=== PATIENT | female | born 1960 | race American Indian/Alaskan Native ===

== ENCOUNTER 2019-01-22 13:50 | Emergency (ER) | payer OTHER ==
--- NOTE | 2019-01-22 15:50 | Emergency Department Report ---
Chief Complaint: Extremity Injury, Upper Stated Complaint: R ARM PAIN Time Seen by Provider: 01/22/19 15:44 - HPI History of Present Illness: This is a 58 y.o. Telugu speaking female patient that reports with right shoulder pain radiating to fingers for 3 days. Denies injury. - ROS Review of Systems: right shoulder pain - Exam Vital Signs: Vital Signs 01/22/19 15:36 Temperature 98.2 F Pulse Rate 75 Respiratory 18 Rate Blood Pressure 152/81 [Left] O2 Sat by Pulse 98 Oximetry MSE screening note: Focused history and physical exam performed. Due to findings the following was ordered: X-ray of right shoulder Fast track for further evaluation ED Disposition for MSE Condition: Stable
--- NOTE | 2019-01-22 16:27 | XRay Report ---
XRAY RIGHT SHOULDER THREE VIEWS: 01/22/19 13:50:00 CLINICAL: Acromioclavicular joint pain FINDINGS: Normal acromioclavicular joint and normal glenohumeral joint. No fracture or dislocation. No bone lesion. Large calcifications in the subdeltoid bursa adjacent to the greater tuberosity and at the distal aspect of the supraspinatus tendon. IMPRESSION: Calcific tendinopathy of the rotator cuff and subdeltoid calcific bursitis. Normal acromioclavicular joint.
[2019-01-22] MEDS ORDERED: TORADOL IM STA (22:30)
[2019-01-22] MEDS ORDERED: PERCOCET 5/325 PO STA (22:30)
--- NOTE | 2019-01-22 22:50 | Emergency Department Report ---
ED Upper Extremity Inj HPI - General Chief Complaint: Extremity Injury, Upper Stated Complaint: R ARM PAIN Time Seen by Provider: 01/22/19 15:44 Source: patient Mode of arrival: Ambulatory Limitations: Language Barrier - History of Present Illness MD Complaint: Injury to:: right, shoulder -: week(s) (often on for over a year, but progressively worsening the last couple weeks) Other Extremity Injury: Shoulder: Right Other Injuries: none Handedness: right Improves With: none Worsens With: none Associated Symptoms: denies: numbness, neck pain, nausea/vomiting, heard/felt popping sensat - Related Data Previous Rx's Medication Instructions Recorded Last Taken Type predniSONE [Deltasone] 20 mg PO QDAY #10 tab 01/22/19 Unknown Rx traMADol [Ultram] 50 mg PO Q6HR PRN #14 tablet 01/22/19 Unknown Rx Allergies Allergy/AdvReac Type Severity Reaction Status Date / Time No Known Allergies Allergy Verified 01/22/19 15:48 ED Review of Systems ROS: Stated complaint: R ARM PAIN Other details as noted in HPI Constitutional: denies: chills, fever Eyes: denies: eye pain, eye discharge, vision change ENT: denies: ear pain, throat pain Respiratory: denies: cough, shortness of breath, wheezing Cardiovascular: denies: chest pain, palpitations Endocrine: no symptoms reported Gastrointestinal: denies: abdominal pain, nausea, diarrhea Genitourinary: denies: urgency, dysuria, discharge Musculoskeletal: arthralgia. denies: back pain, joint swelling Skin: denies: rash, lesions Neurological: denies: headache, weakness, paresthesias Psychiatric: denies: anxiety, depression Hematological/Lymphatic: denies: easy bleeding, easy bruising ED Past Medical Hx - Social History Smoking Status: Never Smoker Substance Use Type: None - Medications Home Medications: Home Medications Medication Instructions Recorded Confirmed Last Taken Type predniSONE [Deltasone] 20 mg PO QDAY #10 tab 01/22/19 Unknown Rx traMADol [Ultram] 50 mg PO Q6HR PRN #14 tablet 01/22/19 Unknown Rx ED Physical Exam - General Limitations: Language Barrier General appearance: alert, in no apparent distress - Head Head exam: Present: atraumatic, normocephalic - Eye Eye exam: Present: normal appearance, PERRL - ENT ENT exam: Present: mucous membranes moist - Neck Neck exam: Present: normal inspection - Respiratory Respiratory exam: Present: normal lung sounds bilaterally. Absent: respiratory distress - Cardiovascular Cardiovascular Exam: Present: regular rate, normal rhythm. Absent: systolic murmur, diastolic murmur, rubs, gallop - GI/Abdominal GI/Abdominal exam: Present: soft, normal bowel sounds - Extremities Exam Extremities exam: Present: normal inspection - Expanded Upper Extremity Exam Right Shoulder Exam: Present: tenderness, tenderness over AC joint, other (this decreased range of motion due to pain. Decreased flexion, extension, abduction a reduction.Strength is 5 over 5. No masses are or appreciated. No step-off. No sulcus sign.). Absent: swelling, abrasion, crepidus, dislocation, erythema - Back Exam Back exam: Present: normal inspection - Neurological Exam Neurological exam: Present: alert, oriented X3 - Psychiatric Psychiatric exam: Present: normal affect, normal mood - Skin Skin exam: Present: warm, dry, intact, normal color. Absent: rash ED Course Vital Signs 01/22/19 01/22/19 15:36 15:48 Temperature 98.2 F 98.2 F Pulse Rate 75 75 Respiratory 18 16 Rate Blood Pressure 152/81 Blood Pressure 152/81 [Left] O2 Sat by Pulse 98 98 Oximetry ED Medical Decision Making - Radiology Data Radiology results: report reviewed Calcific tendinitis noted - Medical Decision Making X-rays did did reveal calcific tendinopathy which I had a long discussion with the patient's daughter who is a nurse at this facility. We went over the cause this as well as the treatment plan and the expected outcomes. We discussed rehabilitation as well as surgical fixation as well. She expressed a full understanding of what was needed. And she understands the importance of following up with the orthopedic. The mother does not speak speak Wolof so her daughter was being the medical physiologist and ui application developer Critical care attestation.: If time is entered above; I have spent that time in minutes in the direct care of this critically ill patient, excluding procedure time. ED Disposition Clinical Impression: Calcific tendinitis of right shoulder region Disposition: DC- TO HOME OR SELFCARE Is pt being admited?: No Does the pt Need Aspirin: No Condition: Undetermined Instructions: Calcific Tendinitis (ED) Prescriptions: predniSONE [Deltasone] 20 mg PO QDAY #10 tab traMADol [Ultram] 50 mg PO Q6HR PRN #14 tablet PRN Reason: Pain Referrals: [facility] GHISLAINE [Primary Care Provider] - 3-5 Days SUMIT ATKINS MD [Staff Physician] - 3-5 Days
[2019-01-22 23:31] VITALS: BP 160/85
== END 2019-01-22 23:30 | disposition home or self-care (01) ==
LOC: ED 13:50
DX: M75.31 Calcific tendinitis of right shoulder (principal)
CPT/HCPCS: 73030; 96372; 99283; J1885